=== PATIENT | female | born 1940 | race Caucasian/White ===

== ENCOUNTER 2023-10-10 10:48 | Emergency (ER) | payer OTHER, SELFPAY ==
[2023-10-10 10:55] VITALS: BP 170/78
--- NOTE | 2023-10-10 11:22 | ED.GENMED ---
History of Present Illness
<Kimberley Purdy PA-C - Last Filed: 10/10/23 17:57>
General
Chief Complaint: Back Pain
Source: patient
Exam Limitations: none
Time Seen by Provider: 10/10/23 11:13
Nursing documentation reviewed up to this point in time: agreed with
History of Present Illness
History of Present Illness:
This a 83-year-old female with a history of cervical osteoarthritis, hypertension presenting emergency department today with concerns of low back pain and neck pain for the past 10 days. Patient states that she had no trauma to the area or any
falls. Patient states it started out of nowhere. Patient states that she has had issues with neck pain and back pain a few years ago and was told that she had degenerative changes in her cervical spine as well as bony overgrowth. Patient states
that she has not had episode of pain while. Patient never seen orthopedist for this issue. Patient saw her primary care provider who put her on a course of steroids and she took the last dose of this today. This did not help her symptoms.
Patient is also tried aspirin, Tylenol, salon paus patches with no relief. She said that the only thing that mildly helps her symptoms is the salon paus patches. She denies upper back pain, radiation of her pain down her legs, weakness, difficulty
ambulating, paresthesias, urinary or fecal incontinence, fevers or chills, chest pain, shortness of breath.
Past History
<Kimberley Purdy PA-C - Last Filed: 10/10/23 17:57>
Past History
ED Past Medical History: None; Negative Asthma, HTN, Hypercholesterolemia or NIDDM
ED Past Surgical History: None
Social History
Tobacco: Non-smoker
Alcohol: Daily
Drug: None
Personal:
Living: with family
Review of Systems
<Kimberley Purdy PA-C - Last Filed: 10/10/23 17:57>
Review of Systems
All Other Systems: ROS reviewed and negative except as documented in HPI and ROS
Phy Exam
<Kimberley Purdy PA-C - Last Filed: 10/10/23 17:57>
Physical Exam
Physical Exam:
General: Patient is well appearing and in no acute distress; non-toxic
Skin: Warm and dry, no rashes or lesions
Head: Normocephalic, atraumatic
Neck: Patient seen spontaneously moving cervical spine, no bony tenderness of the cervical spine, mild right upper trapezius tenderness.
Eyes: Sclera non-icteric. EOMs intact.
Cardiac: Regular rate
Pulm: Normal respiratory effort
Musculoskeletal: No midline bony tenderness of the thoracic and lumbar spine. Negative straight leg raise. No ecchymosis, no signs of trauma.
Neuro: CN II-XII intact, no focal neurologic deficits.
Psychiatric: Appropriate mood and affect.
Course
<Kimberley Purdy PA-C - Last Filed: 10/10/23 17:57>
Orders/Labs/Results
Orders:
Orders
10/10/23 11:20
COVID-19 Antigen Urgent
Source: Nasal Swab
10/10/23 11:37
Acetaminophen [Tylenol] 1,000 mg PO NOW STA
10/10/23 11:40
CR Cervical Spine 2 or 3 Vw Urgent
Comment:
Reason For Exam: neck pain
CR Lumbar Spine 2 Or 3 Views Urgent
Comment:
Reason For Exam: low back pain
CR Thoracic Spine 3 Views Urgent
Comment:
Reason For Exam: low back pain
Vital Signs
Initial and Last Documented VS:
Initial Vital Signs
Temp Pulse Resp BP Pulse Ox
98.1 F 90 16 170/78 98
10/10/23 10:55 10/10/23 10:55 10/10/23 10:55 10/10/23 10:55 10/10/23 10:55
Last Documented Vital Signs
Temp Pulse Resp BP Pulse Ox
98.1 F 90 16 170/78 98
10/10/23 10:55 10/10/23 10:55 10/10/23 10:55 10/10/23 10:55 10/10/23 10:55
<Rayshawn Real DO - Last Filed: 10/10/23 13:13>
Orders/Labs/Results
Orders:
Orders
10/10/23 11:20
COVID-19 Antigen Urgent
Source: Nasal Swab
10/10/23 11:37
Acetaminophen [Tylenol] 1,000 mg PO NOW STA
10/10/23 11:40
CR Cervical Spine 2 or 3 Vw Urgent
Comment:
Reason For Exam: neck pain
CR Lumbar Spine 2 Or 3 Views Urgent
Comment:
Reason For Exam: low back pain
CR Thoracic Spine 3 Views Urgent
Comment:
Reason For Exam: low back pain
Vital Signs
Initial and Last Documented VS:
Initial Vital Signs
Temp Pulse Resp BP Pulse Ox
98.1 F 90 16 170/78 98
10/10/23 10:55 10/10/23 10:55 10/10/23 10:55 10/10/23 10:55 10/10/23 10:55
Last Documented Vital Signs
Temp Pulse Resp BP Pulse Ox
98.1 F 90 16 170/78 98
10/10/23 10:55 10/10/23 10:55 10/10/23 10:55 10/10/23 10:55 10/10/23 10:55
<Kimbelrey Purdy PA-C - Last Filed: 10/10/23 17:57>
MDM/Problems Addressed
Differential Diagnosis Includes:
Differentials include osteoarthritis, musculoskeletal sprain/strain, cervical radiculopathy, occipital headache, tension headache
MDM/Problems Addressed:
Neck and back pain:
This a 83-year-old female with a history of cervical osteoarthritis, hypertension presenting emergency department today with concerns of low back pain and neck pain for the past 10 days. Patient states that she had no trauma to the area or any
falls. Patient states it started out of nowhere. Patient denies any fevers or chills, saddle paresthesias, upper back pain, chest pain, shortness of breath, urinary or fecal incontinence. Her thoracic spine x-ray shows mild to moderate multilevel
degenerative changes, her lumbar x-ray shows mild L-shaped curvature of the thoracic and lumbar spine but no evidence of compression fracture in her x-ray chills again multilevel degenerative changes. Discussed with patient that osteoarthritis is
likely cause of her symptoms, she is never seen an orthopedist for this issue, patient recently got off a trial of steroids and did this not relieve her symptoms. Patient states the pain keeps her up at night, we did give her a short course of
narcotic pain medication. Patient will follow-up with Ortho or primary. Patient is able to ambulate without difficulty. Will discharge
Chronic conditions affecting care:
Hypertension, osteoarthritis
Acute Exacerbation and/or Progression of Chronic Illness:
n/a
<Kimberley Purdy PA-C - Last Filed: 10/10/23 17:57>
*Critical Care Note
Total Time (30-74mins, 75-104mins- exclusive of procedures): Not Applicable
ED Attending Note
<Kimberley Purdy PA-C - Last Filed: 10/10/23 17:57>
-
Portions of this chart may have been created with voice recognition software.� Occasional wrong word or��sound alike� substitutions may have occurred due to the inherent limitations of voice recognition software.
<Rayshawn Real DO - Last Filed: 10/10/23 13:13>
ED Attending Note
Patient seen and examined by attending physician: Yes
I performed the substantive portion of visit, reviewed & personally made and approve the management plan that is documented in note by myself or JOHAN.: Yes
I performed a history and physical exam of patient and discussed management with resident, I reviewed resident's note and agree with documented findings and plan of care.: Yes
ED Attending Note:
I evaluated patient at bedside. The patient has no upper extremity neurologic deficits. She primarily complains of neck pain to the point that she cannot sleep at night. She has already tried steroids. Patches have not helped. Will give short
course of narcotic analgesia to be take at nighttime. Also giving prescription for physical therapy.
Discharge Plan
Departure
Patient Disposition: Home (Routine Discharge)
Date of Disposition: 10/10/23
Time of Disposition: 13:19
Patient with high blood pressure during this ER visit?: Yes
Condition: Good
Discharge Problem:
Osteoarthritis, Back pain
Instructions: Osteoarthritis, Low Back Pain (DC), BLOOD PRESSURE
Prescriptions:
New
hydrocodone-acetaminophen 5-300 mg tablet
1 tab PO Q6H PRN (Reason: Pain) Qty: 8 0RF
No Action
amino acids [Daily Amino] 1 TAB tablet
1 tab PO DAILY
Minerals
1 tab PO DAILY
Vitamins
1 tab PO DAILY
methylprednisolone [Medrol (Stef)] 4 MG tablets,dose pack
4 tab PO . DIRECT Qty: 1 0RF
epinephrine [EpiPen 2-Stef] 0.3 MG/0.3 ML auto-injector
0.3 mg IM ONCE PRN (Reason: acute severe allergic reaction) Qty: 0 0RF
Rx Instructions:
Use as needed for acute severe allergic reaction
Referrals:
Jackie Rogers PA-C [Family Provider] -
Derick Centeno MD [Active] - Call in 1-3 days for appt
Activity Restrictions/Additional Instructions:
Please follow-up with an orthopedist. You can call the attached number to make an appointment.
Please call the attached number for [facility] to make an appointment: [phone].
Please return emergency department should you experience chest pain, shortness of breath, sudden acute worsening or symptoms, difficulty ambulating, weakness, numbness or tingling in the genital region, urinary or fecal incontinence, fevers or
chills, or any other signs or symptoms concerning to you.
Vicodin has been sent to your pharmacy. This medicine contains Tylenol. You can take 1 tablet every 6 hours as needed for pain. I recommend taking MiraLAX with this to help prevent constipation.
Interventions
Interventions:
*General Assessment Last Done: 10/10/23 13:43
*Nursing Disposition Last Done: 10/10/23 13:43
ED-Musculoskeletal Assessment Last Done: 10/10/23 12:05
Discharge Date and Time
Discharge Date/Time: 10/10/23 13:44
Print Language: YAKUT
[2023-10-10 11:36] LABS: COVID-19 Antigen Negative (Negative)
[2023-10-10] MEDS: TYLENOL 1000 MG PO (12:04)
== END 2023-10-10 13:44 | disposition home or self-care (01) ==
LOC: EMR 10:48
PROVIDERS: EMERGENCY PHYSICIAN Emergency Medicine; FAMILY PHYSICIAN Physician Assistant Medical
DX: M47.813 Spondylosis without myelopathy or radiculopathy, cervicothoracic region (principal); M47.816 Spondylosis without myelopathy or radiculopathy, lumbar region; I10 Essential (primary) hypertension; Z11.52 Encounter for screening for COVID-19
CPT/HCPCS: 99283; 72040; 72072; 72100; 87811

== ENCOUNTER 2023-11-13 09:49 | Outpatient (RCR) | payer OTHER, SELFPAY | END 2023-11-13 23:59 | disposition home or self-care (01) | LOC: RPT 09:49 | PROVIDERS: ATTENDING PHYSICIAN Orthopaedic Surgery; FAMILY PHYSICIAN Family Medicine | DX: M54.2 Cervicalgia (principal); M47.812 Spondylosis without myelopathy or radiculopathy, cervical region; M47.816 Spondylosis without myelopathy or radiculopathy, lumbar region; Z73.6 Limitation of activities due to disability | CPT/HCPCS: 97010; 97110; 97140; 97162 ==

== ENCOUNTER 2023-11-28 10:17 | Outpatient (RCR) | payer OTHER, SELFPAY | END 2023-11-28 23:59 | disposition home or self-care (01) | LOC: RPT 10:17 | PROVIDERS: ATTENDING PHYSICIAN Orthopaedic Surgery; FAMILY PHYSICIAN Family Medicine | DX: M54.2 Cervicalgia (principal); M47.812 Spondylosis without myelopathy or radiculopathy, cervical region; M47.816 Spondylosis without myelopathy or radiculopathy, lumbar region; Z73.6 Limitation of activities due to disability | CPT/HCPCS: 97010; 97110; 97140 ==

== ENCOUNTER → 2024-01-16 13:07 | Outpatient (REF) | payer OTHER, SELFPAY | LOC: RAD 13:07 | PROVIDERS: ATTENDING PHYSICIAN Internal Medicine Cardiovascular Disease; FAMILY PHYSICIAN Physician Assistant Medical | DX: R20.2 Paresthesia of skin (principal) | CPT/HCPCS: 93922; 93925; 93970 ==

== ENCOUNTER 2024-04-27 15:18 | Emergency (ER) | payer OTHER, SELFPAY ==
[2024-04-27 15:23] VITALS: BP 203/104
--- NOTE | 2024-04-27 16:04 | ED.GENMED ---
History of Present Illness
<SHARLENE Gagnon - Last Filed: 04/27/24 18:49>
General
Chief Complaint: Fall
Source: patient
Exam Limitations: none
Time Seen by Provider: 04/27/24 15:30
Nursing documentation reviewed up to this point in time: agreed with
History of Present Illness
History of Present Illness:
Patient is an 83-year-old female who presents to the ER after fall. Patient was standing on a 3 foot stepladder when she lost her balance fell back and hit the back of her head upper back on a tile floor. She denies loss of conscious. She did get
herself up. She does complain of soreness to the head along with laceration but denies any actual headache. She complains of pain across her upper back and bilateral posterior rib area. She has pain with taking a deep breath. She denies any
abdominal pain. She denies any nausea vomiting.
Past History
<SHARLENE Gagnon - Last Filed: 04/27/24 18:49>
Past History
ED Past Medical History: None; Negative Asthma, HTN, Hypercholesterolemia or NIDDM
ED Past Surgical History: None
Social History
Tobacco: Non-smoker
Alcohol: Daily
Drug: None
Personal:
Living: with family
Review of Systems
<SHARLENE Gagnon - Last Filed: 04/27/24 18:49>
Review of Systems
Allergies reviewed?: Yes
All Other Systems: ROS reviewed and negative except as documented in HPI and ROS
Constitutional: Reports no symptoms
Respiratory: Reports other (rib pain posterior b/l; pain with deep breath ); Denies trouble breathing
ABD/GI: Reports no symptoms; Denies abdominal pain, nausea or vomiting
Musculoskeletal: Reports neck pain and back pain
Skin: Reports no symptoms
Neurological: Reports other ( no LOC ); Denies dizzy or headache
Psychiatric: Reports no symptoms
Phy Exam
<SHARLENE Gagnon - Last Filed: 04/27/24 18:49>
General Physical Exam
General Presentation: no apparent distress
General age: appears stated age
General Skin: warm and dry
General Habitus: normal
Cardiovascular Exam
Cardiovascular Exam: regular rate/rhythm, no murmur and normal peripheral pulses
Pulmonary Exam
Pulmonary Exam: lungs clear, no respiratory distress and other (Tender throughout the bilateral posterior ribs no crepitus no ecchymosis)
Gastrointestinal Exam
Gastrointestinal Exam: normal bowel sounds, non tender and soft
Neurological Exam
Neurological Exam: alert, oriented x3, no motor deficits and no sensory deficits
Musculoskeletal Exam
Musculoskeletal Exam: other (Positive abrasion and posterior head hematoma cervical collar placed on my exam, tender throughout the upper back; full range of motion upper lower extremities)
Skin Exam
Skin Exam: normal color and warm/dry
Psychiatric Exam
Psychiatric Exam: normal mood/affect
Course
<SHARLENE Gagnon - Last Filed: 04/27/24 18:49>
Orders/Labs/Results
Orders:
Orders
04/27/24 15:28
CT Cervical Spine W/o Iv Contr Urgent
Comment:
Reason For Exam: Trauma
CT Head W/o Iv Contrast Urgent
Comment:
Reason For Exam: Trauma
04/27/24 16:02
IV Insert/Care/Rem.- Treatment PRN
04/27/24 16:03
CT Chest/abd/pel W Iv Cont Urgent
Comment:
Reason For Exam: trauma fall off a ladder
Cardiac Monitoring- Treatment ONCE
04/27/24 16:04
Morphine Sulfate 2 mg IV NOW STA
04/27/24 16:16
Complete Blood Count/With Diff Urgent
Comprehensive Metabolic Panel Urgent
PTT Urgent
Prothrombin Time Urgent
04/27/24 17:46
Morphine Sulfate 4 mg IV NOW STA
04/27/24 18:24
Tetanus/Diphth/Acelpertussis [Adacel] 0.5 ml IM .ONCE ONE
04/27/24 18:39
Ketorolac [Toradol] 15 mg IV NOW STA
Abnormal Lab Results
04/27/24
16:16
Hct 36.5 L %
(37.0-47.0)
Abs Immat Gran (auto) 0.1 H 10^3/uL
(0-0.05)
Absolute Neuts (auto) 7.1 H 10^3/uL
(1.4-6.5)
Immature Gran % 1.1 H %
(0-0.5)
Neutrophils % 77.5 H %
(42.2-75.2)
Lymphocytes % 13.9 L %
(20.5-51.1)
Sodium 128 L mmol/L
(135-145)
Chloride 91 L mmol/L
(98-107)
BUN 21 H mg/dl
(7-17)
Glucose 140 H mg/dl
(70-99)
AST 39 H U/L
(14-36)
Albumin 5.1 H g/dl
(3.5-5.0)
04/27/24 16:16
04/27/24 16:16
Vital Signs
Initial and Last Documented VS:
Initial Vital Signs
Temp Pulse Resp BP Pulse Ox
36.6 C 105 16 203/104 95
04/27/24 15:23 04/27/24 15:23 04/27/24 15:23 04/27/24 15:23 04/27/24 15:23
Last Documented Vital Signs
Temp Pulse Resp BP Pulse Ox
36.7 C 86 15 155/88 94
04/27/24 19:09 04/27/24 20:00 04/27/24 20:00 04/27/24 20:00 04/27/24 20:00
Home Help Aide consulted with Physician
Home Help Aide consulted with physician?: Yes
Name of Physician Consulted: [email or web address]
<Xavier Bocanegra MD - Last Filed: 04/27/24 20:36>
Orders/Labs/Results
Orders:
Orders
04/27/24 15:28
CT Cervical Spine W/o Iv Contr Urgent
Comment:
Reason For Exam: Trauma
CT Head W/o Iv Contrast Urgent
Comment:
Reason For Exam: Trauma
04/27/24 16:02
IV Insert/Care/Rem.- Treatment PRN
04/27/24 16:03
CT Chest/abd/pel W Iv Cont Urgent
Comment:
Reason For Exam: trauma fall off a ladder
Cardiac Monitoring- Treatment ONCE
04/27/24 16:04
Morphine Sulfate 2 mg IV NOW STA
04/27/24 16:16
Complete Blood Count/With Diff Urgent
Comprehensive Metabolic Panel Urgent
PTT Urgent
Prothrombin Time Urgent
04/27/24 17:46
Morphine Sulfate 4 mg IV NOW STA
04/27/24 18:24
Tetanus/Diphth/Acelpertussis [Adacel] 0.5 ml IM .ONCE ONE
04/27/24 18:39
Ketorolac [Toradol] 15 mg IV NOW STA
Abnormal Lab Results
04/27/24
16:16
Hct 36.5 L %
(37.0-47.0)
Abs Immat Gran (auto) 0.1 H 10^3/uL
(0-0.05)
Absolute Neuts (auto) 7.1 H 10^3/uL
(1.4-6.5)
Immature Gran % 1.1 H %
(0-0.5)
Neutrophils % 77.5 H %
(42.2-75.2)
Lymphocytes % 13.9 L %
(20.5-51.1)
Sodium 128 L mmol/L
(135-145)
Chloride 91 L mmol/L
(98-107)
BUN 21 H mg/dl
(7-17)
Glucose 140 H mg/dl
(70-99)
AST 39 H U/L
(14-36)
Albumin 5.1 H g/dl
(3.5-5.0)
04/27/24 16:16
04/27/24 16:16
Vital Signs
Initial and Last Documented VS:
Initial Vital Signs
Temp Pulse Resp BP Pulse Ox
36.6 C 105 16 203/104 95
04/27/24 15:23 04/27/24 15:23 04/27/24 15:23 04/27/24 15:23 04/27/24 15:23
Last Documented Vital Signs
Temp Pulse Resp BP Pulse Ox
36.7 C 86 15 155/88 94
04/27/24 19:09 04/27/24 20:00 04/27/24 20:00 04/27/24 20:00 04/27/24 20:00
<SHARLENE Gagnon - Last Filed: 04/27/24 18:49>
MDM/Problems Addressed
Differential Diagnosis Includes:
Not limited to intracranial hemorrhage, hematoma, rib fracture, renal contusion
MDM/Problems Addressed:
As documented patient is an 83-year-old female who was on a 3 foot stepladder fell off missed her footing and hit the back of her head. She presents awake alert she is not on blood thinners no loss of conscious. She complains rib pain worse when
takes a deep breath soreness to her upper back and neck. Patient presents with a normal neurologic exam she has a posterior hematoma with an abrasion no active bleeding. She denies any nausea vomiting shortness of breath. She is tender to her
posterior ribs no crepitus lungs are clear. She is not hypoxic stable vital signs. Her hemoglobin is stable, her sodium is slightly low at 128. Her creatinine function is normal. CT head negative for hemorrhage, no intracranial abnormality,
small left posterior scalp hematoma, CAT scan shows a bleed fracture throughout the right lateral mass of C4 with minor displacement acute mildly displaced fracture of the posterior left sixth rib. Patient remains neurologically intact and in no
acute distress here in the ER. Collar was placed when patient presented to triage. Collar remains in place
Discussed all findings with patient and sister. Will call [facility] trauma for transfer
1842: Case discussed with Dr. Bejarano at [facility].
<SHARLENE Gagnon - Last Filed: 04/27/24 18:49>
*Radiology
Radiology exam reviewed: radiology read reviewed
*Pulse Oximetry
Patient hypoxic: no
*Critical Care Note
Total Time (30-74mins, 75-104mins- exclusive of procedures): Not Applicable
ED Attending Note
<SHARLENE Gagnon - Last Filed: 04/27/24 18:49>
-
Portions of this chart may have been created with voice recognition software.� Occasional wrong word or��sound alike� substitutions may have occurred due to the inherent limitations of voice recognition software.
<Xavier Bocaengra MD - Last Filed: 04/27/24 20:36>
ED Attending Note
Patient seen and examined by attending physician: Yes
ED Attending Note:
I have seen and evaluated the patient with a [id number] encounter. I have spoken to the advance practicer provider and involved in the medical history, the physical exam, medical decision making.
Evaluation and management service: agree unless noted differently below.
Results interpretation: agree unless noted differently below.
Focused HPI: 83-year-old female with history as noted presents to the ER for evaluation of fall with head strike. Patient was on a short ladder in the kitchen lost her footing fell backwards hit her head and back on the floor. Denies any loss of
consciousness. Complains of posterior head pain, neck pain. She also reports pain in her left ribs particular breathing. Denies dyspnea. Denies abdominal pain. Denies any pain in her extremities. Denies numbness or weakness in extremities.
Physical exam: Awake alert with GCS 15. Hypertensive and tachycardic. She has occipital scalp hematoma with abrasion/macerated skin but no gaping laceration. Cervical collar in place she does have some midline mid cervical tenderness. She has no
signs of trauma to the back or flank and no spinal step-offs. She has left-sided chest wall tenderness. Abdomen nontender. Extremities atraumatic. Strength and sensation intact in extremities.
Medical Decision Makin-year-old female presents for evaluation after fall from a small ladder/stepstool. Complains of neck pain, chest pain, head pain. Not on blood thinners. Workup was significant for C4 fracture, left rib fracture. CT
head negative. No other injuries in the chest/abdomen/pelvis noted. Case discussed with trauma team at [facility] by SHERYL and accepted for transfer.
Discharge Plan
Departure
Patient Disposition: [facility]
Date of Disposition: 04/27/24
Time of Disposition: 18:47
Patient with high blood pressure during this ER visit?: Yes
Condition: Fair
Covid-19: Not Applicable
Discharge Problem:
C4 cervical fracture, 6th rib fracture, posterior scalp hematoma, Abrasion
Prescriptions:
No Action
Minerals
1 tab PO DAILY
Vitamins
1 tab PO DAILY
epinephrine [EpiPen 2-Stef] 0.3 MG/0.3 ML auto-injector
0.3 mg IM ONCE PRN (Reason: acute severe allergic reaction) Qty: 0 0RF
Rx Instructions:
Use as needed for acute severe allergic reaction
losartan 25 mg Tablet
25 mg PO DAILY
Referrals:
UNKNOWN - PT NOT,INTERVIEWE [Unknown Provider] -
Hospital Transfer
Other hospital: [facility]
I certify that the patient requires transfer: Yes
Discussed case with accepting physician: Dr Bejarano
Reason for transfer: higher level of care
Interventions
Interventions:
*Risk Screen - Suicide Last Done: 04/27/24 15:23
*General Assessment Last Done: 04/27/24 20:13
*Neglect/Abuse Screening Last Done: 04/27/24 15:23
ED- Fall Risk Assessment Last Done: 04/27/24 20:13
*ED COVID-19 Vaccine History Last Done: 04/27/24 20:13
*Nursing Disposition Last Done: 04/27/24 20:13
ED-Musculoskeletal Assessment Last Done: 04/27/24 16:14
ED- Neurological Assessment Last Done: 04/27/24 16:14
ED-Skin Assessment Last Done: 04/27/24 16:14
Discharge Date and Time
Discharge Date/Time: 04/27/24 20:15
Print Language: THAI
[2024-04-27] MEDS: MORPHINE SULFATE 2 MG IV (16:08)
[2024-04-27 16:15] VITALS: BP 159/94; BMI 19.2
[2024-04-27 16:23] LABS: % Basophils 0.5 % (0-2); % Eosinophils 1.5 % (0-6); % Immature Granulocytes 1.1 % (0-0.5); % Lymphocytes 13.9 % (20.5-51.1); % Monocytes 5.5 % (1.7-9.3); % Neutrophils 77.5 % (42.2-75.2); Absolute Basophils 0.1 10^3/uL (0-0.2); Absolute Eosinophils 0.1 10^3/uL (0-0.7); Absolute Immature Granulocytes 0.1 10^3/uL (0-0.05); Absolute Lymphocytes 1.3 10^3/uL (1.2-3.4); Absolute Monocytes 0.5 10^3/uL (0.1-0.6); Absolute Neutrophils 7.1 10^3/uL (1.4-6.5); Hematocrit 36.5 % (37.0-47.0); Hemoglobin 12.7 g/dL (12.0-16.0); Mean Corp Hgb Conc. 34.8 g/dL (33.0-37.0); Mean Corpuscular Hgb 29.8 pg (27.0-31.0); Mean Corpuscular Volume 85.7 fL (81.0-99.0); Mean Platelet Volume 8.9 fL (7.4-10.4); Nucleated Red Blood Cells % 0 %; Platelet Count 286 10^3/uL (130-400); Red Blood Cell Count 4.26 10^6/uL (4.20-5.40); Red Cell Dist. Width 12.7 % (11.5-14.5); White Blood Cell Count 9.1 10^3/uL (4.8-10.8)
[2024-04-27 16:35] LABS: APTT 29.4 Sec (23.4-35.0); INR 0.96; PT 13.1 Sec (11.4-14.6)
[2024-04-27 16:38] LABS: ALT (SGPT) 26 U/L (0-35); AST (SGOT) 39 U/L (14-36); Albumin 5.1 g/dl (3.5-5.0); Alkaline Phosphatase 81 U/L (38-126); Blood Urea Nitrogen 21 mg/dl (7-17); Carbon Dioxide 27 mmol/L (22-30); Chloride 91 mmol/L (98-107); Estimated Creatinine Clearance 47 ml/min; Glucose 140 mg/dl (70-99); Potassium 4.5 mmol/L (3.5-5.1); Sodium 128 mmol/L (135-145); Total Bilirubin 0.7 mg/dl (0.2-1.3); Total Protein 7.5 g/dl (6.3-8.2); eGFR > 60.00
[2024-04-27 17:47] VITALS: BP 191/90
[2024-04-27 17:49] VITALS: BP 191/90
[2024-04-27] MEDS: MORPHINE SULFATE 4 MG IV (17:52)
[2024-04-27] MEDS: TORADOL 15 MG IV (18:46)
[2024-04-27] MEDS: ADACEL 0.5 ML IM (18:46)
[2024-04-27 19:00] VITALS: BP 152/88
[2024-04-27 20:00] VITALS: BP 155/88
== END 2024-04-27 20:15 | disposition short-term general hospital (02) ==
LOC: EMR 15:18
PROVIDERS: Nurse Practitioner; EMERGENCY PHYSICIAN Emergency Medicine; FAMILY PHYSICIAN Physician Assistant Medical
DX: S12.300A Unspecified displaced fracture of fourth cervical vertebra, initial encounter for closed fracture (principal); S22.32XA Fracture of one rib, left side, initial encounter for closed fracture; S00.03XA Contusion of scalp, initial encounter; W11.XXXA Fall on and from ladder, initial encounter; I10 Essential (primary) hypertension; E11.9 Type 2 diabetes mellitus without complications
CPT/HCPCS: 99284; 70450; 71260; 72125; 74177; 80053; 85025; 85610; 85730; 90715; Q9967

== ENCOUNTER → 2024-06-02 12:27 | Outpatient (REF) | payer OTHER, SELFPAY | LOC: HWRAD 12:27 | PROVIDERS: ATTENDING PHYSICIAN Neurological Surgery; FAMILY PHYSICIAN Physician Assistant Medical | DX: S12.9XXA Fracture of neck, unspecified, initial encounter (principal) | CPT/HCPCS: 72125 ==

== ENCOUNTER → 2024-06-13 10:07 | Outpatient (REF) | payer OTHER, SELFPAY | LOC: RAD 10:07 | PROVIDERS: ATTENDING PHYSICIAN Physician Assistant; FAMILY PHYSICIAN Physician Assistant Medical | DX: S12.301 Unspecified nondisplaced fracture of fourth cervical vertebra (principal) | CPT/HCPCS: 72050 ==

== ENCOUNTER 2024-07-16 08:32 | Outpatient (RCR) | payer OTHER, SELFPAY | END 2024-07-16 23:59 | disposition home or self-care (01) | LOC: RPT 08:32 | PROVIDERS: ATTENDING PHYSICIAN Neurological Surgery; FAMILY PHYSICIAN Physician Assistant Medical | DX: S12.301 Unspecified nondisplaced fracture of fourth cervical vertebra (principal) | CPT/HCPCS: 97110; 97162; 97535 ==

== ENCOUNTER 2024-08-07 09:56 | Outpatient (RCR) | payer OTHER, SELFPAY | END 2024-08-07 12:04 | disposition home or self-care (01) | LOC: RPT 09:56 | PROVIDERS: ATTENDING PHYSICIAN Neurological Surgery; FAMILY PHYSICIAN Physician Assistant Medical | DX: S12.301 Unspecified nondisplaced fracture of fourth cervical vertebra (principal); Z73.6 Limitation of activities due to disability; M62.81 Muscle weakness (generalized); W08.XXXD Fall from other furniture, subsequent encounter | CPT/HCPCS: 97010; 97110; 97140; 97535 ==

== ENCOUNTER 2024-09-02 06:17 | Day surgery (SDC) | payer OTHER, SELFPAY | END 2024-09-02 15:13 | disposition home or self-care (01) | LOC: GI 06:17 | PROVIDERS: ATTENDING PHYSICIAN Student in an Organized Health Care Education/Training Program | DX: K62.5 Hemorrhage of anus and rectum (principal); K55.21 Angiodysplasia of colon with hemorrhage; K57.30 Diverticulosis of large intestine without perforation or abscess without bleeding; D12.5 Benign neoplasm of sigmoid colon | CPT/HCPCS: 45385; 88305 ==